=== PATIENT | female | born 1955 | race Caucasian/White ===

== ENCOUNTER 2022-06-28 08:09 | Outpatient (CLI) | payer MEDICARE, OTHER ==
[2022-06-28 09:26] LABS: Hemoglobin 13.1 g/dL (12.0-15.5)
[2022-06-28 09:42] LABS: Anion Gap 14 mmol/L (10-20); BUN (Urea Nitrogen) 10 mg/dL (9.8-20.1); Calc. Creatinine Clearance 0 mL/min (70-130); Carbon Dioxide 26 mmol/L (23-31); Chloride 107 mmol/L (98-107); Estimated GFR 78; Glucose 99 mg/dL (80-115); Potassium 4.2 mmol/L (3.5-5.1); Sodium 143 mmol/L (136-145)
== END 2022-06-28 08:10 | disposition home or self-care (01) ==
LOC: CSHLAB 08:09
PROVIDERS: ATTEND Otolaryngology Otolaryngic Allergy
DX: Z01.812 Encounter for preprocedural laboratory examination (principal); G47.33 Obstructive sleep apnea (adult) (pediatric)
CPT/HCPCS: 80048; 85014; 85018

== ENCOUNTER 2022-07-03 05:43 | Day surgery (SDC) | payer MEDICARE, OTHER ==
[2022-06-29 14:34] VITALS: BMI 31.8
[2022-07-03] MEDS ORDERED: Lidocaine 1% PF 5 ML VIAL ONE (08:59)
[2022-07-03] MEDS ORDERED: Rocuronium Bromide 10 MG/ML (10ML VIAL) ONE (08:59)
[2022-07-03] MEDS ORDERED: PROPOFOL 20 ML ONE (08:59)
[2022-07-03] MEDS ORDERED: Ondansetron PF 4 MG/2 ML Vial ONE (08:59)
[2022-07-03] MEDS ORDERED: Fentanyl 100 MCG/2 ML VIAL ONE ×2 (08:59→12:33)
[2022-07-03] MEDS ORDERED: Midazolam HCl 2 mg/2 ml Vial ONE (08:59)
[2022-07-03] MEDS ORDERED: Dexamethasone 20 MG/5 ML VIAL ONE (08:59)
[2022-07-03] MEDS ORDERED: CEFAZOLIN 2 GM VIAL ONE (09:05)
[2022-07-03] MEDS ORDERED: PHENYLEPHRINE-NS 100 MCG/ML 10 ML SYRINGE ONE (09:39)
[2022-07-03] MEDS ORDERED: Lidocaine 1% w/Epinephrine 1:100K 20 ML VIAL ONE (10:08)
[2022-07-03] MEDS ORDERED: Glycopyrrolate 0.2 MG/ML 5 ML SYRINGE ONE (10:19)
== END 2022-07-03 14:10 | disposition home or self-care (01) ==
LOC: CSHSDC 05:43
PROVIDERS: ATTEND Otolaryngology Otolaryngic Allergy
PROC: 0JH60BZ Insertion of Single Array Stimulator Generator into Chest Subcutaneous Tissue and Fascia, Open Approach (ICD-10-PCS; principal; 2022-07-03)
PROC: 00HE0MZ Insertion of Neurostimulator Lead into Cranial Nerve, Open Approach (ICD-10-PCS; 2022-07-03)
DX: G47.33 Obstructive sleep apnea (adult) (pediatric) (principal); G43.909 Migraine, unspecified, not intractable, without status migrainosus; I10 Essential (primary) hypertension; K21.9 Gastro-esophageal reflux disease without esophagitis; Z79.899 Other long term (current) drug therapy; Z79.82 Long term (current) use of aspirin; Z88.5 Allergy status to narcotic agent; Z88.8 Allergy status to other drugs, medicaments and biological substances
CPT/HCPCS: 64582; 70360; C1820; C1898; C1787; J1100; J2250; J2405; J2704; J3010

== ENCOUNTER 2025-02-17 09:12 | Outpatient (CLI) | payer MEDICARE, OTHER | END 2025-02-17 09:13 | disposition home or self-care (01) | LOC: CSHMRI 09:12 | PROVIDERS: ATTEND Orthopaedic Surgery | DX: M47.26 Other spondylosis with radiculopathy, lumbar region (principal); M25.551 Pain in right hip; M48.061 Spinal stenosis, lumbar region without neurogenic claudication; M48.07 Spinal stenosis, lumbosacral region; M94.8X8 Other specified disorders of cartilage, other site; S76.011A Strain of muscle, fascia and tendon of right hip, initial encounter | CPT/HCPCS: 72148 ==